=== PATIENT | female | born 1995 | race Caucasian/White ===

== ENCOUNTER → 2018-03-31 | Outpatient (REF) ==
[2018-03-31 11:32] LABS: RUBELLA IgG QUALITATIVE IMMUNE (IMMUNE)
[2018-04-03 08:06] LABS: QUANTIFERON GOLD TB Negative (Negative); TB Test (QFT) Antigen 0.16 IU/mL (.); TB Test (QFT) Antigen Minus Ni 0.12 IU/mL (.); TB Test (QFT) Mitogen 6.71 IU/mL (.); TB Test (QFT) Nil 0.04 IU/mL (.)
[2018-04-03 08:06] LABS: HERPES ZOSTER, VARICELLA IgG 738 index (Immune >165)
== END ==
LOC: M LAB 09:58
DX: Z00.00 Encounter for general adult medical examination without abnormal findings (principal)

== ENCOUNTER 2018-08-14 09:58 | Emergency (ER) | payer OTHER ==
[2018-08-14 10:26] LABS: BASO % 0.7 % (0.0-1.0); EOS # 0.1 10^3/uL (0.0-0.50); EOS % 0.9 % (0.0-3.0); HEMATOCRIT 36.1 % (36.0-47.0); HEMOGLOBIN 12.8 g/dl (12.0-15.5); IMMATURE GRANULOCYTE % 0.2 % (0-3.0); LYMPH # 1.4 10^3/uL (1.5-6.5); LYMPH % 23.6 % (24.0-44.0); MEAN CORPUSCULAR HEMOGLOBIN 31.8 pg (27.0-33.0); MEAN CORPUSCULAR HGB CONC 35.5 g/dl (32.0-36.5); MEAN CORPUSCULAR VOLUME 89.8 fl (80.0-96.0); MONO # 0.5 10^3/uL (0.0-0.8); NEUTROPHILS # 3.8 10^3/uL (1.8-7.7); NEUTROPHILS % 66.6 % (36.0-66.0); PLATELET COUNT, AUTOMATED 192 10^3/uL (150-450); RED BLOOD COUNT 4.02 10^6/uL (4.00-5.40); WHITE BLOOD COUNT 5.8 10^3/uL (4.0-10.0)
[2018-08-14 10:52] LABS: HCG, SERUM QUANTITATIVE 130733 MIU/ML
[2018-08-14 12:04] LABS: CHLAMYDIA DNA AMPLIFICATION NEGATIVE (NEGATIVE); GC DNA AMPLIFICATION NEGATIVE (NEGATIVE)
== END 2018-08-14 11:57 | disposition home or self-care (01) ==
LOC: M ED 09:58
DX: O20.9 Hemorrhage in early pregnancy, unspecified (principal)
CPT/HCPCS: 76801

== ENCOUNTER 2018-10-08 06:00 | Outpatient (CLI) | payer OTHER | END 2018-10-08 08:17 | disposition home or self-care (01) | LOC: M LDO 06:00 | DX: O9A.212 Injury, poisoning and certain other consequences of external causes complicating pregnancy, second trimester (principal); W00.9XXA Unspecified fall due to ice and snow, initial encounter; Y92.89 Other specified places as the place of occurrence of the external cause; Y93.H1 Activity, digging, shoveling and raking; Z3A.20 20 weeks gestation of pregnancy; O32.1XX0 Maternal care for breech presentation, not applicable or unspecified | CPT/HCPCS: G0463 ==

== ENCOUNTER 2018-12-03 17:56 | Observation (INO) | payer OTHER ==
[~2018-12-03] VITALS: Ht 175.3 cm; Wt 66.4 kg
[~2018-12-03 17:56] MED LIST: PREN1TAB11 PO
[2018-12-03 18:42] LABS: BASO % 0.5 % (0.0-1.0); EOS # 0.1 10^3/uL (0.0-0.50); EOS % 1.1 % (0.0-3.0); HEMATOCRIT 35.7 % (36.0-47.0); HEMOGLOBIN 12.4 g/dl (12.0-15.5); LYMPH # 1.7 10^3/uL (1.5-6.5); LYMPH % 19.6 % (24.0-44.0); MEAN CORPUSCULAR HEMOGLOBIN 32.1 pg (27.0-33.0); MEAN CORPUSCULAR HGB CONC 34.7 g/dl (32.0-36.5); MEAN CORPUSCULAR VOLUME 92.5 fl (80.0-96.0); MONO # 0.7 10^3/uL (0.0-0.8); MONO % 8.2 % (0.0-5.0); PLATELET COUNT, AUTOMATED 167 10^3/uL (150-450); RED BLOOD COUNT 3.86 10^6/uL (4.00-5.40); WHITE BLOOD COUNT 8.5 10^3/uL (4.0-10.0)
[2018-12-03 18:52] LABS: INR 0.89; PARTIAL THROMBOPLASTIN TIME 27.1 SECONDS (25.4-37.6); PROTHROMBIN TIME 12.1 SECONDS (12.1-14.4)
[2018-12-03 19:05] LABS: BLOOD UREA NITROGEN 8 MG/DL (7-18); CALCIUM LEVEL 8.2 MG/DL (8.5-10.1); CARBON DIOXIDE LEVEL 24 MEQ/L (21-32); CHLORIDE LEVEL 107 MEQ/L (98-107); CPK CREATINE PHOSPHOKINASE 65 U/L (26-192); CREATININE FOR GFR 0.53 MG/DL (0.55-1.30); GLOMERULAR FILTRATION RATE > 60.0 (>60); GLUCOSE, FASTING 109 MG/DL (70-100); MB/CK RELATIVE INDEX 3.85 (< OR =4); SODIUM LEVEL 139 MEQ/L (136-145); TROPONIN I < 0.02 NG/ML (< 0.10)
--- NOTE | 2018-12-03 21:17 | REPVR ---
EXAM: MR Head Without Contrast EXAM DATE/TIME: 12/03/2018 7:44 PM CLINICAL HISTORY: 23 years old, female; Signs and symptoms; Speech disturbance and weakness, extremity; Right; Additional info: R arm numb/weak slurred speech, mrv please per dr. Lazo TECHNIQUE: MR of the head without contrast. COMPARISON: No relevant prior studies available. FINDINGS: There is enlargement of the pituitary measuring approximately 8 mm. Considerations would include hypertrophy versus pituitary adenoma. There is some prominence of the left posterior communicating artery. Normal appearing ventricles. There is no evidence of acute stroke. IMPRESSION: 1. No evidence of acute stroke. 2. Enlargement of the pituitary gland measuring 8 mm. Considerations include hypertrophy and pituitary adenoma. This should be closely followed to ensure that there is no progressive enlargement. Electronically signed by: Corona Alvarado On 12/03/2018 21:17:01 PM
--- NOTE | 2018-12-03 21:23 | REPVR ---
EXAM: MR Angiogram Head Without Contrast, Venogram EXAM DATE/TIME: 12/03/2018 7:44 PM CLINICAL HISTORY: 23 years old, female; Signs and symptoms; Speech disturbance and weakness; Slurred speech; Additional info: R arm numb/weak slurred speech, mrv please per dr. Lazo TECHNIQUE: MR angiogram of the head without contrast. Exam focused on the veins. MIP reconstructed images were created and reviewed. COMPARISON: MRI-Brain without Contrast 12/03/2018 7:22 PM FINDINGS: There is flow and venous return throughout the venous sinuses. This includes the sagittal, sigmoid and straight venous sinuses. IMPRESSION: Normal MR venogram. Electronically signed by: Corona Alvarado On 12/03/2018 21:22:47 PM
[2018-12-03] MEDS ORDERED: FIORICET TAB PO ONE (21:30)
[2018-12-03] MEDS ORDERED: ACETAMINOPHEN TAB 650MG DOSE (2X325MG) PO PRN (22:15)
[2018-12-03] MEDS ORDERED: ONDANSETRON 4MG/2ML VIAL (J2405) IV PRN (22:15)
[2018-12-03] MEDS ORDERED: FIORICET TAB PO PRN (22:15)
--- NOTE | 2018-12-03 23:21 | HPE ---
DATE OF ADMISSION: 12/03/2018 CHIEF COMPLAINT: Frontal headache with slurred speech, blurry vision, right facial numbness, right-sided weakness and numbness. HISTORY OF PRESENT ILLNESS: The patient is a 23-year-old female G2, P1, 28 weeks gravid who presents to the emergency room with complaints of a headache that started around 10:00 a.m. this morning. The headache is in the frontal region, bifrontal area. It is a 6 out of 10 in severity. Nonradiating. Associated with some nausea, photophobia as well as transient slurred speech, blurry vision, right facial numbness, right arm weakness that lasted for about 30 minutes. Patient denies any cough, fever, chills, chest pain, shortness of breath or urinary symptoms. Blood pressure in the emergency room is within normal limits. This does not have any sign points toward pre-eclampsia. She has no edema and blood pressure is normal. In the emergency room, she had an MRV as well as an MRI of the head which were both unremarkable for any acute cerebrovascular accident (CVA) or venous sinus thrombosis. She was subsequently given Fioricet with relief of the symptoms. Neurology was consulted. This is most likely secondary to complex migraine versus less likely transient ischemic attack (TIA). Patient is to be placed on the observation unit to complete the TIA workup with echo and carotid Doppler to test for an embolic source. PAST MEDICAL HISTORY: See HPI. PAST SURGICAL HISTORY: None. ALLERGIES: No known drug allergies. HOME MEDICATIONS: - multivitamin SOCIAL HISTORY: Denies tobacco, alcohol, or illicit drug use. FAMILY HISTORY: Noncontributory. REVIEW OF SYSTEMS: A 12-point review of systems was completed, all of which were negative except those listed in the HPI. ADMISSION VITAL SIGNS: Temperature 97.9, pulse 109, respirations 16, saturating at 98% on room air. Blood pressure 131/72. PHYSICAL EXAMINATION: GENERAL: She is well-nourished, in no apparent distress. HEAD: Normocephalic, atraumatic. EYES: Extraocular movements are intact. Pupils equal, round and reactive to light. NECK: Supple. No jugular venous pressure. LUNGS: Clear to auscultation. No crackles, wheezes, rales or rhonchi. CARDIOVASCULAR: Regular rate and rhythm, normal S1, S2. No murmurs, gallops or rubs. ABDOMEN: Gravid. She has no vaginal discharge or abdominal pain. EXTREMITIES: No pitting edema or calf tenderness. SKIN: Intact. No rashes, lesions or break downs. NEUROLOGICAL: Alert and oriented times three. No focal deficits appreciated on exam. LABS IN THE EMERGENCY ROOM: White count of 8, hemoglobin and hematocrit of 12/35, platelet count of 167. Coags within normal limits. Chemistry: Unremarkable. BUN and creatinine 8/0.53. Fingersticks within normal limits. IMAGING COMPLETED IN THE EMERGENCY ROOM: MRV: Unremarkable. MRI of the head shows no evidence of acute stroke. Enlargement of the pituitary gland measuring 8 mm. ASSESSMENT AND PLAN: Headache. Neurological symptoms likely secondary to complex migraine. TIA very much less likely. Venous sinus thrombosis already ruled out with a negative MRV. Will keep the patient at the neurology recommendation to complete the TIA workup to assess for embolic source with ultrasound carotid Doppler and echocardiogram of the heart. She is to be placed on the observation unit. Fioricet as needed migraine which is more likely a complicated migraine. For , she is 28 weeks gravid. Continue vitamins. Followup [facility] as outpatient. For pituitary enlargement, this is likely result of . Unlikely to be a pituitary adenoma. This can be followed in the outpatient setting.
[2018-12-04 00:08] VITALS: BP 106/66
--- NOTE | 2018-12-04 04:25 | REP ---
Clinical: Transient ischemic attack . Technique: Choi scale and color Doppler evaluation using linear high frequency transducer Findings: Two-dimensional choi scale and color images demonstrate very minimal intimal thickening with essentially normal arterial lumen, laminar flow and no appreciable narrowing. Color Doppler interrogation demonstrates normal arterial wave patterns and velocities with no significant spectral broadening. Normal flow direction is appreciated in the bilateral vertebral arteries. RIGHT (cm/s) LEFT (cm/s) ICA peak systolic velocity 76.6 71.4 ICA diastolic velocity 34.4 24.2 ECA peak systolic velocity 77.4 101.5 CCA peak systolic velocity 86.4 119.0 ICA/CCA ratio 0.89 0.60 Impression: No hemodynamically significant areas of narrowing or stenosis appreciated. Based on set standards narrowing falls within the normal range. Electronically Signed by Codey Huerta MD 12/04/2018 04:16 A
[2018-12-04 06:00] VITALS: BP 109/59
[2018-12-04] MEDS ORDERED: HEPARIN SOD (PORCINE) 5000 UNITS/ML VIAL SC SCH (06:00)
[2018-12-04 06:26] LABS: HEMATOCRIT 31.8 % (36.0-47.0); HEMOGLOBIN 10.8 g/dl (12.0-15.5); MEAN CORPUSCULAR HEMOGLOBIN 32.3 pg (27.0-33.0); MEAN CORPUSCULAR VOLUME 95.2 fl (80.0-96.0); PLATELET COUNT, AUTOMATED 131 10^3/uL (150-450); RED BLOOD COUNT 3.34 10^6/uL (4.00-5.40); WHITE BLOOD COUNT 6.6 10^3/uL (4.0-10.0)
[2018-12-04 06:46] LABS: BLOOD UREA NITROGEN 9 MG/DL (7-18); CALCIUM LEVEL 7.9 MG/DL (8.5-10.1); CARBON DIOXIDE LEVEL 24 MEQ/L (21-32); CHLORIDE LEVEL 110 MEQ/L (98-107); CREATININE FOR GFR 0.49 MG/DL (0.55-1.30); GLOMERULAR FILTRATION RATE > 60.0 (>60); GLUCOSE, FASTING 83 MG/DL (70-100); POTASSIUM SERUM 3.7 MEQ/L (3.5-5.1); SODIUM LEVEL 142 MEQ/L (136-145)
--- NOTE | 2018-12-04 07:54 | IPNPDOC ---
Text Note Date of Service The patient was seen on 12/04/18. NOTE I was called by OB charge master analyst this AM for recs for orders re the baby while Mrs CHENG is admitted. I reviewed the through and comprehensive H&P, which I agree with, dx most likely a complex migraine with no need for lovenox. Much less likely TIA athough the w/u needs to be completed. I have spoken with today's OB supervisor instrument mechanics and they will send someone over to get the heart rate (not a NST) every 24 hours while admitted. I did not examine the patient (not needed). Thank you for caring for our practice's patient. Sessions MD Jon YANG VS,Jean, I+O VS, Jean, I+O Laboratory Tests 12/03/18 18:27 Red Blood Count 3.86 L, Mean Corpuscular Volume 92.5, Mean Corpuscular Hemoglobin 32.1, Mean Corpuscular Hemoglobin Concent 34.7, Red Cell Distribution Width 14.0, Neutrophils (%) (Auto) 70.0 H, Lymphocytes (%) (Auto) 19.6 L, Monocytes (%) (Auto) 8.2 H, Eosinophils (%) (Auto) 1.1, Basophils (%) (Auto) 0.5, Neutrophils # (Auto) 6.0, Lymphocytes # (Auto) 1.7, Monocytes # (Auto) 0.7, Eosinophils # (Auto) 0.1, Basophils # (Auto) 0.0, Calcium Level 8.2 L, Total Creatine Kinase 65 12/04/18 05:46 Red Blood Count 3.34 L, Mean Corpuscular Volume 95.2, Mean Corpuscular Hemoglobin 32.3, Mean Corpuscular Hemoglobin Concent 34.0, Red Cell Distribution Width 14.0, Calcium Level 7.9 L Vital Signs Date Time Temp Pulse Resp B/P (MAP) Pulse Ox O2 Delivery O2 Flow Rate FiO2 12/04/18 06:00 98.8 83 18 109/59 (76) 100 12/03/18 17:58 Room Air I&O- Last 24 Hours up to 6 AM 12/04/18 06:00 Intake Total 420 ml Output Total 200 ml Balance 220 ml SESSIONS,YOLIE Morocho MD Dec 04, 2018 07:54
--- NOTE | 2018-12-04 08:45 | ECGEPIP ---
Stationary ECG Study [facility] - ED Test Date: 2018-12-03 Pat Name: WALDEMAR BURKS Department: Room: [place] [address] Gender: F Casework Supervisor: CHAIM : [id number] Requested By: SILVIO Davis Order Number: [id number] Reading MD: Lindsay Santiago Measurements Intervals [place] Rate: 99 P: 65 WI: 138 QRS: 74 QRSD: 98 T: 50 QT: 332 QTc: 427 Interpretive Statements SINUS RHYTHM NO PRIOR FOR COMPARISON Electronically Signed On 12-04-2018 8:45:57 EST by Lindsay Santigao
--- NOTE | 2018-12-04 11:06 | ECHO ---
DATE OF SERVICE: 12/04/2018 AGE: 23. REFERRING PROVIDER: Connie Heredia MD PATIENT LOCATION: Room 4213. REASON FOR THE ECHOCARDIOGRAM: Transient ischemic attack (TIA). 2D MEASUREMENTS: IVS: 0.7 cm LV: 4.7 cm LVPW: 0.9 cm LA: 3.3 cm Aorta: 2.6 cm DOPPLER MEASUREMENTS: Peak velocity across the aortic valve: 1.6 m/s Peak velocity across the LVOT: 1.2 m/s Peak gradient across the aortic valve: 10 mmHg Mitral E: 0.68 Mitral A: 0.51 with a ratio of 1.3 Maximum tricuspid valve velocity: 2.2 m/s 2D COMMENTS: 1. Normal left ventricular size, wall thickness, and normal global left ventricular systolic ejection fraction. The estimated global left ventricular systolic ejection fraction is 65% to 70%. 2. Normal left atrium. Normal right atrium and right ventricle. 3. The atrial septum appeared to be normal without evidence of defect or shunt. 4. Normal aortic root. 5. Trace pericardial effusion noted posteriorly. No evidence of cardiac tamponade. 6. Normal aortic valve, mitral valve, and tricuspid valve. The pulmonic valve and proximal pulmonary artery branches were not well visualized. 7. The inferior vena cava is normal in size at 1.4 cm. DOPPLER: It detects mild tricuspid regurgitation, trace mitral regurgitation, and trace aortic regurgitation. The calculated pulmonary artery systolic pressure was normal. Assessment of the left ventricular diastolic function also was normal. IMPRESSION: 1. Normal global left ventricular systolic and diastolic function. 2. Trace aortic regurgitation. 3. Trace mitral regurgitation. 4. Mild tricuspid regurgitation with a normal calculated pulmonary artery systolic pressure. 5. Trace pericardial effusion, no evidence of cardiac tamponade. This was noted only posteriorly to the left ventricle.
[2018-12-04 12:00] VITALS: BP 110/58
[2018-12-04] MEDS ORDERED: FIORCAP3 PO (12:26)
--- NOTE | 2018-12-04 21:25 | DSES ---
DATE OF ADMISSION: 12/03/2018 DATE OF DISCHARGE: 12/04/2018 PRIMARY CARE PROVIDER: Davidsonalysia Oswald. DISCHARGE DIAGNOSIS: Complex migraine. HOSPITALIZATION COURSE: Patient is a 23-year-old female who presented to [facility] on 12/03/2018 with a complaint of a frontal headache with slurred speech, blurry vision, right facial numb, and right-sided weakness and numbness. Patient was admitted under hospitalist service. Transient ischemic attacks (TIA) workup initiated. There was a suspicion patient may have complex migraine. Medication given to the patient, and headache showed gradual improving. Later, all the diagnostic workup, including MRI and MRA of carotid artery, all came back negative. Later, patient had an echocardiogram. Preliminary result was discussed with hot billet shear operator, and no abnormality was noted. Patient was determined stable for discharge on 12/04/2018 with the recommendation to followup with the primary care provider in 1-2 week. On the day of admission, the case was discussed with neurologist, and also on the day of discharge case was reviewed with neurologist again with all the subjective findings, and patient determined stable for discharge. VITAL SIGNS: On day of discharge, temperature 98.3, pulse 83, respirations 18, blood pressure 110/58, pulse oximetry 97% on room air. LABORATORY DATA: WBC 6.6, hemoglobin 10.8, hematocrit 31.8, platelet count is 131. Sodium is 142, potassium 3.7, chloride 110, carbon dioxide 24, BUN 9, creatinine 0.49, GFR greater than 60, fasting glucose 83, calcium is 10.9. Troponin I is less than 0.0.2 IMAGING STUDIES: MRI of the brain without contrast demonstrated no evidence of acute stroke. Enlargement of pituitary gland. MRA of the brain without contrast on 12/03/2018 showed normal MR venogram. Carotid duplex showed no hemodynamically significant area of narrowing or stenosis appreciated. Echocardiogram demonstrated normal systolic and diastolic function. Trace aortic regurgitation. Trace mitral regurgitation. Mild tricuspid regurgitation with a normal calculated pulmonary artery systolic pressure. Trace pericardial effusion. No evidence of cardiac tamponade. DISCHARGE MEDICATIONS: - Fioricet one tablet by mouth as needed for migraine headache, 5 days only - by mouth daily DISCHARGE INSTRUCTIONS: Discontinue line. Discharge home. Activity as tolerated. Diet as tolerated. Patient should followup with her primary care provider at [facility] in 1-2 weeks. DISCHARGE TIME: Including coordinating all the care is greater than 30 minutes.
== END 2018-12-04 14:10 | disposition home or self-care (01) ==
LOC: M ED 17:56 → M ED INP 22:02 → M MSPAV 23:56
PROVIDERS: ADMIT Internal Medicine; ATTEND Internal Medicine
DX: O99.355 Diseases of the nervous system complicating the puerperium (principal); G43.919 Migraine, unspecified, intractable, without status migrainosus; Z3A.28 28 weeks gestation of pregnancy